=== PATIENT | male | born 1970 | race Asian ===

== ENCOUNTER 2023-08-05 10:07 | Emergency (ER) | payer OTHER ==
[2023-08-05 10:13] VITALS: BMI 25.8
[2023-08-05] MEDS ORDERED: SODIUM CHLORIDE 0.9% 500 ML INFUS.BAG IV ONE (11:35)
[2023-08-05] MEDS ORDERED: ACETAMINOPHEN 500 MG TABLET (FP) PO ONE (11:35)
[2023-08-05] MEDS ORDERED: KETOROLAC TROMETHAMINE 30 MG/1 ML VIAL IVPUSH ONE (11:36)
[2023-08-05] MEDS ORDERED: ACETAMINOPHEN INJECTION 100 ML IVPB ONE (13:15)
[2023-08-05] MEDS ORDERED: ACETAMINOPHEN 500 MG TABLET (FP) ONE (13:16)
[2023-08-05 13:21] LABS: BASO % 0.4 % (0-2.0); EOS % 0.2 % (0-4.5); HEMATOCRIT 46.2 % (35.4-49); HEMOGLOBIN 15.6 GM/dL (11.7-16.9); LYMPH % 7.2 % (8-40); MCH 28.8 pg (25.7-33.7); MCHC 33.8 g/dl (32.0-35.9); MEAN CELL VOLUME 85.1 fl (80-96); MEAN PLT VOLUME 7.3 fl (7.5-11.1); MONO % 17.2 % (3.8-10.2); PLATELET COUNT 205 10^3/uL (134-434); RBC 5.43 M/mm3 (4.00-5.60); RDW 14.1 % (11.9-15.9); WHITE BLOOD COUNT 5.7 K/mm3 (4.0-10.0)
[2023-08-05] MEDS ORDERED: KETOROLAC TROMETHAMINE 30 MG/1 ML VIAL ONE (13:22)
[2023-08-05 13:39] LABS: PH,URINE 6.5 (5.0-8.0); URINE APPEARANCE CLEAR; URINE BILIRUBIN NEGATIVE (NEGATIVE); URINE COLOR YELLOW; URINE GLUCOSE (UA) NEGATIVE (NEGATIVE); URINE KETONE NEGATIVE (NEGATIVE); URINE LEUK ESTERASE NEGATIVE (NEGATIVE); URINE NITRITE NEGATIVE (NEGATIVE); URINE PROTEIN NEGATIVE (NEGATIVE); URINE UROBILINOGEN 0.2 mg/dL (0.2-1.0)
[2023-08-05 14:02] LABS: POTASSIUM 4.4 mmol/L (3.5-5.1)
[2023-08-05 14:04] LABS: ALBUMIN 3.5 g/dl (3.4-5.0); CALCIUM 8.4 mg/dL (8.5-10.1)
[2023-08-05 14:05] LABS: BLOOD UREA NITROGEN 13.6 mg/dL (7-18)
[2023-08-05 14:08] LABS: CREATININE 1.1 mg/dL (0.55-1.3)
[2023-08-05 14:09] LABS: BILIRUBIN,TOTAL 0.4 mg/dL (0.2-1); TOT PROT 7.5 g/dl (6.4-8.2)
[2023-08-05 14:56] LABS: LACTIC ACID 2.1 mmol/L (0.4-2.0)
[2023-08-05 16:22] VITALS: BP 108/58; PULSE 90; RESP 18; TEMP 99.2
[2023-08-05] MEDS ORDERED: AMOXICILLIN 500 MG CAPSULE (FP) PO ONE (16:23)
[2023-08-05] MEDS ORDERED: AMOX TR/POT CLAV 875MG/125MG TABLETS (FP) PO ONE (16:32)
[2023-08-05] MEDS ORDERED: DOXYCYCLINE HYCLATE 100 MG CAPSULE PO ONE ×2 (16:32→16:42)
[2023-08-05] MEDS ORDERED: AMOX TR/POT CLAV 875MG/125MG TABLETS (FP) ONE (16:42)
== END 2023-08-05 16:58 | disposition home or self-care (01) ==
LOC: JER 10:07
PROC: 3E0333Z Introduction of Anti-inflammatory into Peripheral Vein, Percutaneous Approach (ICD-10-PCS; principal; 2023-08-05)
DX: R05.9 Cough, unspecified (principal); R09.81 Nasal congestion; R51.9 Headache, unspecified; J02.9 Acute pharyngitis, unspecified; M79.10 Myalgia, unspecified site; R50.9 Fever, unspecified; R63.0 Anorexia; R53.83 Other fatigue; J18.9 Pneumonia, unspecified organism; J10.1 Influenza due to other identified influenza virus with other respiratory manifestations; Z20.822 Contact with and (suspected) exposure to COVID-19
CPT/HCPCS: 0241U-QW; 36415; 71046-TC-FY; 80053; 81003; 83605; 85025; 87040; 87086; 87651; 99284-25